=== PATIENT | female | born 1955 | race Caucasian/White ===

== ENCOUNTER → 2018-07-16 | Outpatient (REF) | payer BC ==
[2018-07-16 09:54] LABS: ALBUMIN 3.9 g/dL (3.2-5.0); ALKALINE PHOSPHATASE 39 u/l (38-126); ANION GAP 12 (6-22 (CALC)); BILIRUBIN, TOTAL 0.7 mg/dL (0.0-1.4); BUN 22 mg/dL (8-23); BUN/CREATININE RATIO 26 (12-20 (CALC)); CALCULATED LDLCHOLESTEROL 147 mg/dL (62-129 (CALC)); CARBON DIOXIDE 29 mmol/l (22-30); CHLORIDE 103 mmol/l (95-108); CHOLESTEROL HDL RATIO 5.4 (<4.4 (CALC)); CREATININE 0.9 mg/dL (0.5-1.0); GFR > 60 ML/MIN (>=60 (CALC)); GFR FOR AFR.AMER. > 60 ML/MIN (>=60 (CALC)); HDL CHOLESTEROL 38 mg/dL (>=40); SGOT/AST 21 u/l (9-36); SODIUM 140 mmol/l (137-146); TOTAL CHOLESTEROL 206 mg/dl (0-199); TOTAL PROTEIN 6.8 g/dL (6.3-8.2); TOTAL TRIGLYCERIDES 102 mg/dl (30-149); VLDL CHOLESTROL 20 mg/dl (1-41 (CALC))
== END | disposition home or self-care (01) | DRG 305 ==
LOC: LAB 08:26
PROVIDERS: ATTEND Internal Medicine Geriatric Medicine
DX: I10 Essential (primary) hypertension (principal)

== ENCOUNTER 2018-11-08 10:38 | Observation (INO) | payer BC ==
[~2018-11-08] VITALS: Ht 157.5 cm; Wt 94.0 kg
--- NOTE | 2018-11-08 10:45 | NUR ---
PT TO ROOM 8 VIA WC. ABLE TO STAND AND TRANSFER SELF.
[2018-11-08 11:49] LABS: URINE BILIRUBIN - DIPSTICK NEGATIVE (NEGATIVE); URINE COLOR YELLOW; URINE GLUCOSE - DIPSTICK NEGATIVE (NEGATIVE); URINE KETONE 15 mg/dL (NEGATIVE); URINE NITRITE - DIPSTICK NEGATIVE (Negative); URINE PH 5.5 (4.5-8.0); URINE PROTEIN - DIPSTICK NEGATIVE (NEG-TRACE); URINE SPECIFIC GRAVITY <=1.005; URINE UROBILINOGEN - DIPSTICK 0.2 E.U./dL (0.2)
[2018-11-08 11:50] LABS: HEMATOCRIT 41.4 % (37.0-47.0); IMMATURE GRANULOCYTES 0.2 % (0.0-5.0); MEAN CELL VOLUME 92.6 fL CALC (80.0-100.0); MEAN CORPUSCULAR HGB 31.3 pG CALC (26.0-32.0); MEAN CORPUSCULAR HGB CONC 33.8 g/L CALC (32.0-36.0); NEUT# 2.9 thou/uL (2.00-7.15); RED BLOOD COUNT 4.47 mill/uL (4.20-5.60); RED CELL DISTRI WIDTH 12.7 % (11.5-15.5); URINE LEUK ESTERASE SMALL (NEGATIVE)
[2018-11-08 11:58] LABS: URINE BLOOD DIPSTICK NEGATIVE (NEGATIVE)
[2018-11-08 11:59] LABS: URINE BACTERIA RARE hpf; URINE EPITHELIAL CELLS MODERATE EPI/hpf (0-FEW)
--- NOTE | 2018-11-08 12:09 | NUR ---
PT REPORTS FEELING IMPROVED. CALL LIGHT PROVIDE. LAB PRESENT FOR REDRAW. SKIN WARM AND DRY. CALL LIGHT PROVIDED.
--- NOTE | 2018-11-08 12:10 | NUR ---
PT CARE ASSUMED AT THIS TIME.
[2018-11-08 12:43] LABS: ALBUMIN 4.2 g/dL (3.2-5.0); ALKALINE PHOSPHATASE 51 u/l (38-126); ANION GAP 15 (6-22 (CALC)); BILIRUBIN, TOTAL 0.6 mg/dL (0.0-1.4); BUN 24 mg/dL (8-23); BUN/CREATININE RATIO 31 (12-20 (CALC)); CARBON DIOXIDE 22 mmol/l (22-30); CHLORIDE 108 mmol/l (95-108); CREATININE 0.8 mg/dL (0.5-1.0); GFR > 60 ML/MIN (>=60 (CALC)); GFR FOR AFR.AMER. > 60 ML/MIN (>=60 (CALC)); POTASSIUM 3.9 mmol/l (3.5-5.1); SGOT/AST 21 u/l (9-36); SODIUM 142 mmol/l (137-146); TOTAL PROTEIN 7.1 g/dL (6.3-8.2)
--- NOTE | 2018-11-08 13:05 | NUR ---
PT DENIES ANY PAIN AT THIS TIME BUT REPORT CONTINUED HEADACHE. PT BP 205/88, NOTIFIED. AWAITING NEW ORDERS.
--- NOTE | 2018-11-08 13:20 | NUR ---
PT MEDICATED PER ORDERED. PT AWARE OF PLAN FOR CT BRAIN AND WAIT TIME. CALL TORREZ WITHN REACH.
--- NOTE | 2018-11-08 14:20 | NUR ---
PT RESTING COMFORTABLY IN STRETCHER IN NAD. PT DENIES ANY CHEST PAIN AT THIS TIME. BP, 169/78 AT AT THIS TIME. PT REPORTS CONTINUED NECK PAIN. WARM BLANKET GIVEN TO PT AND PLACED BEHIND NECK. PT AWARE OF PENDING RESULTS AND WAIT TIME. CALL TORREZ WITHIN REACH.
--- NOTE | 2018-11-08 14:26 | NUR ---
MD AT BEDSIDE TO DISCUSS RESULTS AND PLAN FOR ADMISSION.
--- NOTE | 2018-11-08 14:50 | NUR ---
BLOOD PRESSURE MEDICATIONS HELD DUE TO BP.
--- NOTE | 2018-11-08 15:25 | NUR ---
PT RESTING COMFORTABLY IN STRETCHER AND DENIES ANY PAIN. PT AWARE OF DELAY IN ADMISSION DUE TO NO ROOM ASSIGNMENTS AT THIS TIME. PT DENIES ANY NEEDS, AT BEDSIDE.
--- NOTE | 2018-11-08 16:15 | NUR ---
PT RESTING COMFORTABLY IN STRETCHER IN NAD. PT DENIES ANY PAIN AT THIS TIME. CALL TORREZ WITHIN REACH.
[2018-11-08] MEDS ORDERED: PANTOPRAZOLE SO40 MG PO (16:23)
[2018-11-08] MEDS ORDERED: HYDROCHLOROT25 MG PO (16:47)
[2018-11-08] MEDS ORDERED: LEVOTHYROXIN125 MCG PO (16:48)
[2018-11-08] MEDS ORDERED: COVARYX PO (16:49)
[2018-11-08] MEDS ORDERED: SULINDAC150 MG PO (16:49)
--- NOTE | 2018-11-08 17:10 | NUR ---
ATTEMPTED TO CALL REPORT, NURSE WILL CALL BACK.
--- NOTE | 2018-11-08 17:33 | NUR ---
REPORT CALLED TO GUILLERMO MONROE.
--- NOTE | 2018-11-08 17:45 | NUR ---
PT REQUESTED TO LEAVE PANTS ON UNTIL UP TO ROOM. PT TRANSPORTED TO [facility] ROOM 284 VIA WHEELCHAIR ON TELE MONITOR IN STABLE CONDITION. CARE RELINQUISHED TO GUILLERMO MONROE.
[2018-11-08 18:07] VITALS: BP 155/75
--- NOTE | 2018-11-08 18:25 | NUR ---
ASSESSMENT DONE . TELE IN PLACE. PT IS A&O X3. RESPS EVEN AND UNLABORED. PT STATED PAIN 2/10 FOR A HEADACHE. PT DENIES PAIN MEDICATION AT THIS TIME. #20 RAC THAT APPEARS HEALTHY. SAFETY PRECAUTIONS REINFORCED AND CALL LIGHT IN REACH.
[2018-11-08 20:01] VITALS: BP 170/74
--- NOTE | 2018-11-08 20:15 | NUR ---
PATIENT RESTING IN BED-AWAKE ALERT AND ORIENTEDX3. PATIENT C/O RIGHT SIDED OCCIPITAL H/A-MEDICATED WITH TYLENOL 650MG PO AND PROVIDED WITH COLD PACK FOR HER HEAD. PATIENT DENIES ANY CHEST PAIN AT THIS TIME. TELE MONITOR IN PLACE. MONITOR SHOWS SB-57. SALINE LOCK INTACT TO RIGHT AC-SITE APPEARS HEALTHY WITH GOOD BLOOD RETURN. STATES THAT SHE HAS BEEN UNDER ALOT OF STRESS RECENTLY WITH HER DAUGHTER. SAFETY PRECAUTIONS REINFORCED WITH PATIENT. CALL LIGHT IN REACH. WILL CONT TO MONITOR.
--- NOTE | 2018-11-09 | NUR ---
RESTING IN BED-PROVIDED WITH ANOTHER COLD PACK AND COLD DRINK PER PATIENT REQUEST. TELE MONITOR IN PLACE. TROP DRAWN ORDERED. CALL LIGHT IN REACH. WILL CONT TO MONITOR.
[2018-11-09 00:24] VITALS: BP 141/66
[2018-11-09 04:25] VITALS: BP 139/76
--- NOTE | 2018-11-09 04:29 | NUR ---
PATIENT APPEARS SLEEPING AT THIS TIME WITH EYES CLOSED. RESP ARE EVEN AND UNLABORED. TELE MONITOR IN PLACE. CALL LIGHT IN REACH. WILL CONT TO MONITOR.
[2018-11-09 06:04] LABS: HEMATOCRIT 38.3 % (37.0-47.0); HEMOGLOBIN 12.8 g/dl (12.0-16.0); IMMATURE GRANULOCYTES 0.2 % (0.0-5.0); MEAN CELL VOLUME 93.2 fL CALC (80.0-100.0); MEAN CORPUSCULAR HGB 31.1 pG CALC (26.0-32.0); MEAN CORPUSCULAR HGB CONC 33.4 g/L CALC (32.0-36.0); NEUT# 2.34 thou/uL (2.00-7.15); RED BLOOD COUNT 4.11 mill/uL (4.20-5.60); RED CELL DISTRI WIDTH 12.7 % (11.5-15.5)
[2018-11-09 06:16] LABS: ALBUMIN 3.7 g/dL (3.2-5.0); ALKALINE PHOSPHATASE 43 u/l (38-126); AMYLASE 32 u/l (30-110); ANION GAP 14 (6-22 (CALC)); BILIRUBIN, TOTAL 0.5 mg/dL (0.0-1.4); BUN 24 mg/dL (8-23); BUN/CREATININE RATIO 32 (12-20 (CALC)); CARBON DIOXIDE 23 mmol/l (22-30); CHLORIDE 108 mmol/l (95-108); CREATININE 0.8 mg/dL (0.5-1.0); GFR > 60 ML/MIN (>=60 (CALC)); GFR FOR AFR.AMER. > 60 ML/MIN (>=60 (CALC)); LIPASE 100 u/l (23-300); MAGNESIUM 1.8 mg/dL (1.6-2.3); POTASSIUM 3.8 mmol/l (3.5-5.1); SGOT/AST 22 u/l (9-36); SODIUM 141 mmol/l (137-146); TOTAL PROTEIN 6.3 g/dL (6.3-8.2)
--- NOTE | 2018-11-09 07:15 | NUR ---
REPORT RECEIVED FROM GUILLERMO ROSS;PT RESTING IN HIGH FOWLERS POSITION;INTRODUCED SELF TO PT AND POC DISCUSSED;PT DENIES ANY CURRENT PAIN OR NEEDS;RESPIRATIONS EVEN AND UNLABORED ON RA;TELE MONITORING IN PLACE;ALL SAFETY PRECAUTIONS REINFORCED AND PT ENCOURAGED TO EXPRESS ANY NEEDS OR CONCERNS;CALL LIGHT IN REACH;WILL CONTINUE TO MONITOR
--- NOTE | 2018-11-09 08:30 | NUR ---
PT RESTING IN SEMI FOWLERS POSITION;VS OBTAINED AND ASSESSMENT COMPLETED;PT DENIES ANY CURRENT CHEST PAIN OR PRESSURE,PAIN SCALE AND REPORTING EDUCATED;RESPIRATIONS EVEN AND UNLABORED ON RA,CLEAR LUNG SOUNDS;ABDOMEN DISTENDED/SOFT ON PALPATION AND ACTIVE IN ALL 4 QUADRANTS;TELE MONITORING IN PLACE;SKIN INTACT;#20G TO LAC FLUSHED AND PATENT,SITE APPEARS HEALTHY;PT DENIES ANY ADDITIONAL NEEDS AT THIS TIME, FRESH ICE PROVIDED PER REQUEST;PT ENCOURAGED TO CALL FOR ASISSTANCE IF NEEDED;CALL LIGHT I REACH;WILL CONTINUE TO MONITOR
[2018-11-09 08:31] VITALS: BP 185/61
--- NOTE | 2018-11-09 11:44 | NUR ---
PT RESTING IN BED WITH SPOUSE AT BEDSIDE; RESPIRATIONS EVEN AND UNLABORED ON RA;PT DENIES ANY CURRENT PAIN OR NEEDS;TELE MONITORING IN PLACE;IV SITE TO LAC PATENT;ASSESSMENT REMAINS UNCHANGED AT THIS TIME;ENCOURAGED PT TO CALL FOR ASSISTANCE IF NEEDED;CALL LIGHT IN REACH;WILL CONTINUE TO MONITOR
[2018-11-09 12:27] VITALS: BP 162/89
--- NOTE | 2018-11-09 13:17 | NUR ---
AT BEDSIDE DISCUSSING POC.
[2018-11-09 15:35] VITALS: BP 204/95
--- NOTE | 2018-11-09 16:10 | NUR ---
PT RESTING IN BED WITH SPOUSE AT BEDSIDE;PT DENIES ANY CURRENT CHEST PAIN OR NEEDS;RESPIRATIONS EVEN AND UNLABORED ON RA;TELE MONITORING IN PLACE AND IV SITE TO LAC PATENT;TELE MONITORING NOTED;PT INSTRUCTED TO CALL FOR ASSISTANCE IF NEEDED;CALL LIGHT IN REACH;WILL CONTINUE TO MONITOR
[2018-11-09 19:00] VITALS: BP 140/86
--- NOTE | 2018-11-09 19:30 | NUR ---
PATIENT RESTING IN BED WITH LIGHTS OUT AND EYES CLOSED-POSITIONED ON RIGHT SIDE.RESP ARE EVEN AND UNLABORED. TELE MONITOR IN PLACE. CALL LIGHT IN REACH. WILL CONT TO MONITOR.
--- NOTE | 2018-11-10 | NUR ---
PATIENT RESTING IN BED AT THIS TIME WITH NO COMPLAINTS. SALINE LOCK OINTACT TO RIGHT AC-SITE REMAINS HEALTHY AT THIS TIME. TELE MONITOR IN PLACE. SAFETY PRECAUTIONS REINFORCED. CALL LIGHT IN REACH. WILL CONT TO MONITOR.
[2018-11-10 00:07] VITALS: BP 117/66
[2018-11-10 04:06] VITALS: BP 142/82
[2018-11-10 05:07] LABS: HEMATOCRIT 41.7 % (37.0-47.0); HEMOGLOBIN 13.7 g/dl (12.0-16.0); IMMATURE GRANULOCYTES 0.2 % (0.0-5.0); MEAN CELL VOLUME 93.5 fL CALC (80.0-100.0); MEAN CORPUSCULAR HGB 30.7 pG CALC (26.0-32.0); MEAN CORPUSCULAR HGB CONC 32.9 g/L CALC (32.0-36.0); NEUT# 3.04 thou/uL (2.00-7.15); RED BLOOD COUNT 4.46 mill/uL (4.20-5.60); RED CELL DISTRI WIDTH 12.7 % (11.5-15.5)
--- NOTE | 2018-11-10 05:11 | NUR ---
PATIENT APPEARS SLEEPING AT THIS TIME WITH EYES CLOSED. RESP ARE EVEN AND UNLABORED. TELE MONITOR IN PLACE. CALL LIGHT IN REACH. WILL CONT TO MONITOR.
[2018-11-10 05:31] LABS: ALBUMIN 3.9 g/dL (3.2-5.0); ALKALINE PHOSPHATASE 46 u/l (38-126); ANION GAP 15 (6-22 (CALC)); BILIRUBIN, TOTAL 0.5 mg/dL (0.0-1.4); BUN 22 mg/dL (8-23); BUN/CREATININE RATIO 30 (12-20 (CALC)); CARBON DIOXIDE 21 mmol/l (22-30); CHLORIDE 106 mmol/l (95-108); CREATININE 0.7 mg/dL (0.5-1.0); GFR > 60 ML/MIN (>=60 (CALC)); GFR FOR AFR.AMER. > 60 ML/MIN (>=60 (CALC)); MAGNESIUM 1.8 mg/dL (1.6-2.3); POTASSIUM 3.9 mmol/l (3.5-5.1); SGOT/AST 22 u/l (9-36); SODIUM 139 mmol/l (137-146); TOTAL PROTEIN 6.7 g/dL (6.3-8.2)
--- NOTE | 2018-11-10 07:06 | NUR ---
REPORT RECEIVED FROM CODY. PT IS SLEEPING IN BED WITH NO S/S OF DISTRESS NOTED. CALL LIGHT IN REACH.
[2018-11-10 07:26] VITALS: BP 130/68
--- NOTE | 2018-11-10 08:05 | NUR ---
ASESSMENT DONE . TELE IN PLACE. PT IS A&O X3. RESPS EVEN AND UNLABORED. #20 LAC THAT APPEARS HEALTHY. SAFETY PRECAUTIONS REINFORCED AND CALL LIGHT IN REACH.
[2018-11-10 11:20] VITALS: BP 121/88
--- NOTE | 2018-11-10 11:45 | NUR ---
DR. MONDRAGON AT BEDSIDE TO ASESS PT AND DISCUSSS POC. CALL LIGHT IN REACH.
[2018-11-10] MEDS ORDERED: CARVEDILOL3.125 MG PO (15:11)
[2018-11-10] MEDS ORDERED: LOSARTAN POT50 MG PO (15:11)
--- NOTE | 2018-11-10 16:03 | NUR ---
Discharge instructions given. Patient verbalizes understanding of same. Discharged in stable condition via Wheelchair to Home with spouse. All belongings sent with pt.
== END 2018-11-10 16:10 | disposition home or self-care (01) | DRG 313 ==
LOC: ED 10:38 → ED-I 14:23 → ED 14:35 → ED-I 14:36 → MS2 17:23
PROVIDERS: Family Medicine; ADMIT Internal Medicine Nephrology; ATTEND Internal Medicine Nephrology
DX: R07.89 Other chest pain (principal); I10 Essential (primary) hypertension; E03.9 Hypothyroidism, unspecified; F41.8 Other specified anxiety disorders; K21.9 Gastro-esophageal reflux disease without esophagitis; E66.9 Obesity, unspecified; Z68.37 Body mass index [BMI] 37.0-37.9, adult; Z63.79 Other stressful life events affecting family and household
CPT/HCPCS: G0378

== ENCOUNTER 2019-07-12 09:29 | Day surgery (SDC) | payer MEDICARE, BC ==
[~2019-07-12] VITALS: Ht 157.5 cm; Wt 86.2 kg
[~2019-07-12 09:29] MED LIST: ASPIRIN81 MG PO; CARVEDILOL3.125 MG PO; CARVEDILOL6.25 MG PO; COQ10100 MG PO; COVARYX PO; FISH OIL PO; HYDROCHLOROT25 MG PO; LEVOCETIRIZI PO; LEVOTHYROXIN125 MCG PO; LIPITOR10 M1 PO; LOSARTAN POT50 MG PO; LOSARTAN POTASS50 MG PO; NEXIUM20 M1 PO; NORVASC5 M1 PO; PANTOPRAZOLE SO40 MG PO; POTASSIUM ER PO; PRESERVISION ARED1 PO; RESTASIS0.05 % OU; SULINDAC150 MG PO; WELLBUTRIN150 M1 PO; [UNRECOGNIZED DRUG - OTHER] PO; [UNRECOGNIZED DRUG - OTHER] PO
[2019-07-12 11:57] VITALS: BP 140/74
== END 2019-07-12 12:24 | disposition home or self-care (01) ==
LOC: ORM 09:29
PROVIDERS: ATTEND Surgery
PROC: 0DBG8ZX Excision of Left Large Intestine, Via Natural or Artificial Opening Endoscopic, Diagnostic (ICD-10-PCS; principal; 2019-07-12)
PROC: 0DBL8ZX Excision of Transverse Colon, Via Natural or Artificial Opening Endoscopic, Diagnostic (ICD-10-PCS; 2019-07-12)
DX: Z12.11 Encounter for screening for malignant neoplasm of colon (principal); K63.5 Polyp of colon; I10 Essential (primary) hypertension; Z86.010 Personal history of colon polyps; Z80.0 Family history of malignant neoplasm of digestive organs; K57.30 Diverticulosis of large intestine without perforation or abscess without bleeding

== ENCOUNTER 2024-06-25 00:49 | Emergency (ER) | payer MEDICARE, BC ==
[~2024-06-25] VITALS: Ht 157.5 cm; Wt 73.4 kg
[2024-06-25 03:06] LABS: URINE BILIRUBIN - DIPSTICK Negative (NEGATIVE); URINE GLUCOSE - DIPSTICK Negative (NEGATIVE); URINE KETONE Negative (NEGATIVE); URINE NITRITE - DIPSTICK Negative (Negative); URINE PROTEIN - DIPSTICK Negative (NEG-TRACE); URINE UROBILINOGEN - DIPSTICK 0.2 E.U./dL (0.2)
[2024-06-25 03:06] LABS: BASO% 0.2 % (0-3); EOS% 0.7 % (0-8); HEMATOCRIT 33.9 % (37.0-47.0); HEMOGLOBIN 11.5 g/dl (12.0-16.0); LYMPH% 19.3 % (15-41); MEAN CELL VOLUME 91.1 fL CALC (80.0-100.0); MEAN CORPUSCULAR HGB 30.9 pG CALC (26.0-32.0); MEAN CORPUSCULAR HGB CONC 33.9 g/dL CAL (32.0-36.0); MONO% 8.6 % (2-13); NEUT# 4.13 thou/uL (2.00-7.15); NEUT% 71.2 % (42-76); RED BLOOD COUNT 3.72 mill/uL (4.20-5.60); RED CELL DISTRI WIDTH 12.7 % (11.5-15.5)
[2024-06-25 03:09] LABS: URINE COLOR Yellow; URINE LEUK ESTERASE Small (NEGATIVE)
[2024-06-25 03:10] LABS: URINE BLOOD DIPSTICK Negative (NEGATIVE)
[2024-06-25 03:18] LABS: ALBUMIN 4.4 g/dL (3.2-5.0); ALKALINE PHOSPHATASE 66 u/l (38-126); ANION GAP 12 (6-22 (CALC)); BILIRUBIN, TOTAL 0.6 mg/dL (0.02-1.3); BUN 26 mg/dL (8-23); BUN/CREATININE RATIO 30 (12-20 (CALC)); CARBON DIOXIDE 22 mmol/l (22-30); CHLORIDE 110 mmol/l (95-108); CREATININE 0.9 mg/dL (0.5-1.0); ESTIMATED GFR 69 ML/MIN (>=90 (CALC)); SGOT/AST 28 u/l (9-36); SODIUM 141 mmol/l (137-146); TOTAL PROTEIN 7.5 g/dL (6.3-8.2)
[2024-06-25 03:19] LABS: URINE EPITHELIAL CELLS FEW EPI/hpf (0-FEW)
[2024-06-25 03:20] LABS: URINE BACTERIA MODERATE hpf
[2024-06-25 03:23] LABS: POTASSIUM 3.3 mmol/l (3.5-5.1)
[2024-06-25] MEDS ORDERED: POTASSIUM CHLORIDE 20 MEQ/TAB PO ONE (05:20)
[2024-06-25 05:36] VITALS: BP 150/84
== END 2024-06-25 05:43 | disposition home or self-care (01) ==
LOC: ED 00:49
PROVIDERS: Emergency Medicine
DX: R55 Syncope and collapse (principal); E87.6 Hypokalemia; I10 Essential (primary) hypertension